=== PATIENT | male | born 1965 | race Caucasian/White ===

== ENCOUNTER 2022-06-10 06:47 | Emergency (ER) | payer OTHER, MEDICARE ==
[2022-06-10] MEDS ORDERED: Ketorolac 30 MG/ML SDV IM ONE (07:20)
[2022-06-10] MEDS ORDERED: LORazepam 2 MG/ML SDV IM ONE (07:20)
[2022-06-10] MEDS ORDERED: fentaNYL 100 MCG/2 ML SDV IM ONE (09:36)
== END 2022-06-10 10:06 | disposition home or self-care (01) ==
LOC: JP.ED 06:47
DX: S16.1XXA Strain of muscle, fascia and tendon at neck level, initial encounter (principal); E78.00 Pure hypercholesterolemia, unspecified; I10 Essential (primary) hypertension; E11.9 Type 2 diabetes mellitus without complications; F17.210 Nicotine dependence, cigarettes, uncomplicated; Z88.5 Allergy status to narcotic agent; Z79.899 Other long term (current) drug therapy; V49.40XA Driver injured in collision with unspecified motor vehicles in traffic accident, initial encounter; Y92.410 Unspecified street and highway as the place of occurrence of the external cause
CPT/HCPCS: 72125; 76377; 96372; 99283; J1885; J2060; J3010

== ENCOUNTER 2022-09-17 04:58 | Emergency (ER) | payer MEDICARE, OTHER ==
[2022-09-17] MEDS ORDERED: HYDROmorphone 0.5 MG/0.5 ML Syringe IVPUSH ONE ×2 (05:35→08:44)
[2022-09-17] MEDS ORDERED: Ondansetron 4 MG/2 ML SDV IVPUSH ONE (05:35)
[2022-09-17] MEDS ORDERED: Sodium Chloride 0.9% 1,000 ML IV SCH (05:45)
[2022-09-17 06:26] LABS: ESTIMATED GFR 79 mL/min (>60)
[2022-09-17] MEDS ORDERED: Sodium Chloride 0.9% 10 ML Syringe FLUSH ONE (07:06)
[2022-09-17] MEDS ORDERED: Iopamidol 612 MG/ML 100 ML Bottle IV SCH (07:15)
[2022-09-17] MEDS ORDERED: Sodium Chloride 0.9% 50 ML IV SCH (07:15)
== END 2022-09-17 12:11 | disposition home or self-care (01) ==
LOC: JP.ED 04:58
DX: T18.4XXA Foreign body in colon, initial encounter (principal); R10.11 Right upper quadrant pain; E78.00 Pure hypercholesterolemia, unspecified; E03.9 Hypothyroidism, unspecified; E11.9 Type 2 diabetes mellitus without complications; F17.210 Nicotine dependence, cigarettes, uncomplicated; Z88.6 Allergy status to analgesic agent; Z79.899 Other long term (current) drug therapy; Z79.84 Long term (current) use of oral hypoglycemic drugs; Z86.16 Personal history of COVID-19
CPT/HCPCS: 36415; 74177; 80053; 81001; 83690; 85025; 96361; 96374; 96375; 96376; 99284; J1170; J2405; J3490; J7030; Q9967

== ENCOUNTER 2022-09-18 22:57 | Emergency (ER) | payer MEDICARE, OTHER ==
[2022-09-18] MEDS ORDERED: Sodium Chloride 0.9% 10 ML Syringe FLUSH PRN (23:23)
[2022-09-18] MEDS ORDERED: Sodium Chloride 0.9% 1,000 ML IV STA (23:23)
[2022-09-18] MEDS ORDERED: Ondansetron 4 MG/2 ML SDV IVPUSH ONE (23:24)
[2022-09-18] MEDS ORDERED: HYDROmorphone 1 MG/ML Syringe IVPUSH ONE (23:24)
[2022-09-19 00:12] LABS: ESTIMATED GFR 88 mL/min (>60); TROPONIN I HIGH SENSITIVITY 5.2 pg/mL (<=60.3)
[2022-09-19] MEDS ORDERED: Alum Hydrox/Mag Hydrox/Simeth 15 ML, Lidocaine 2% 15 ML PO ONE ×2 (00:14)
[2022-09-19] MEDS ORDERED: Lidocaine 2% Viscous Solution 15 ML UD ONE (00:19)
== END 2022-09-19 03:35 ==
LOC: JP.ED 22:57
DX: R10.11 Right upper quadrant pain (principal); E78.00 Pure hypercholesterolemia, unspecified; K21.9 Gastro-esophageal reflux disease without esophagitis; E11.9 Type 2 diabetes mellitus without complications; E03.9 Hypothyroidism, unspecified; F17.210 Nicotine dependence, cigarettes, uncomplicated; Z86.16 Personal history of COVID-19; Z88.5 Allergy status to narcotic agent; Z79.899 Other long term (current) drug therapy
CPT/HCPCS: 36415; 80053; 83605; 83690; 84484; 85025; 87635; 96361; 96374; 96375; 99284; A9270; J1170; J2405; J3490; J7030; U0002

== ENCOUNTER 2022-09-25 12:31 | Inpatient (IN) | payer OTHER ==
[2022-09-25] MEDS ORDERED: Ondansetron 4 MG/2 ML SDV IVPUSH ONE (13:08)
[2022-09-25] MEDS ORDERED: Sodium Chloride 0.9% 1,000 ML IV SCH (13:15)
[2022-09-25 14:51] LABS: ESTIMATED GFR 71 mL/min (>60)
[2022-09-25] MEDS ORDERED: 50% Dextrose in Water 50 ML Syringe IV PRN (16:19)
[2022-09-25] MEDS ORDERED: Acetaminophen 325 MG Tab PO PRN (16:19)
[2022-09-25] MEDS ORDERED: Sodium Chloride 0.9% 10 ML Syringe FLUSH PRN (16:19)
[2022-09-25] MEDS ORDERED: Glucose Gel 15 GM in 37.5 GM Tube PO PRN (16:19)
[2022-09-25] MEDS ORDERED: LORazepam 2 MG/ML SDV IV PRN (16:19)
[2022-09-25] MEDS: HYDROmorphone 0.5 MG/0.5 ML Syringe IVPUSH PRN ×3 (17:13→22:42)
[2022-09-25] MEDS: Insulin Lispro 100 Unit/ML 3 ML KwikPen SUBCUT SCH ×2 (17:16→21:21)
[2022-09-25] MEDS: Enoxaparin 40 MG/0.4 ML Syringe SUBCUT SCH (17:16)
[2022-09-25] MEDS: Ondansetron 4 MG/2 ML SDV IV PRN (19:19)
[2022-09-25] MEDS ORDERED: Propranolol 40 MG Tab PO SCH (21:00)
[2022-09-25] MEDS ORDERED: rOPINIRole 1 MG Tab PO SCH (21:00)
[2022-09-25] MEDS: Cyclobenzaprine 10 MG Tab PO PRN (21:27)
[2022-09-25] MEDS: Topiramate 25 MG Tab PO SCH (21:27)
[2022-09-26] MEDS: Sodium Chloride 0.9% 1,000 ML IV SCH ×2 (01:10→09:12)
[2022-09-26] MEDS: HYDROmorphone 0.5 MG/0.5 ML Syringe IVPUSH PRN ×3 (01:25→08:23)
[2022-09-26] MEDS: Ondansetron 4 MG/2 ML SDV IV PRN ×2 (01:25→15:33)
[2022-09-26] MEDS ORDERED: Levothyroxine 25 MCG, Levothyroxine 50 MCG PO SCH ×2 (07:30)
[2022-09-26] MEDS: Insulin Lispro 100 Unit/ML 3 ML KwikPen SUBCUT SCH ×3 (08:17→17:03)
[2022-09-26] MEDS: Topiramate 25 MG Tab PO SCH (08:18)
[2022-09-26] MEDS ORDERED: Non-Formulary Medication 1 Each (Levothyroxine [Levothyroxine] 75 MCG Tablet) PO SCH (09:00)
[2022-09-26] MEDS ORDERED: atorvaSTATin 10 MG Tab PO SCH (09:00)
[2022-09-26] MEDS ORDERED: Magnesium Oxide 400 MG Tab PO SCH (09:00)
[2022-09-26] MEDS ORDERED: DULoxetine 30 MG Cap PO SCH (09:00)
[2022-09-26] MEDS ORDERED: Non-Formulary Medication 1 Each (Duloxetine [Cymbalta] 60 MG Cap) PO SCH (09:00)
[2022-09-26] MEDS: Magnesium Sulfate/Water 2 GM in Premix Bag 1 BAG IV SCH ×2 (09:13→15:39)
[2022-09-26] MEDS: Pantoprazole 40 MG Tab.CR PO SCH ×2 (10:42→16:42)
[2022-09-26] MEDS: Cyclobenzaprine 10 MG Tab PO PRN (15:37)
[2022-09-26] MEDS: Enoxaparin 40 MG/0.4 ML Syringe SUBCUT SCH (17:03)
== END 2022-09-26 18:55 | disposition left against medical advice (07) | DRG 392 ==
LOC: JP.ED 12:31 → JP.MS 16:07
PROVIDERS: ADMIT Hospitalist; ATTEND Hospitalist
DX: K52.9 Noninfective gastroenteritis and colitis, unspecified (principal); E11.9 Type 2 diabetes mellitus without complications; K81.9 Cholecystitis, unspecified; E86.0 Dehydration; E03.9 Hypothyroidism, unspecified; E78.5 Hyperlipidemia, unspecified; G43.909 Migraine, unspecified, not intractable, without status migrainosus; K21.9 Gastro-esophageal reflux disease without esophagitis; F17.210 Nicotine dependence, cigarettes, uncomplicated; Z88.5 Allergy status to narcotic agent; Z79.84 Long term (current) use of oral hypoglycemic drugs; Z79.899 Other long term (current) drug therapy; Z90.49 Acquired absence of other specified parts of digestive tract
CPT/HCPCS: 36415; 71045; 71045-26; 74021; 74021-26; 74176; 74176-26; 80048; 80053; 82947; 83690; 83735; 85025; 96361; 96374; 99222; 99238; 99285; 99285-25; A9270-GY; J1170; J1650; J1815; J2060; J2405; J3475; J7030; U0002

== ENCOUNTER 2022-11-10 23:10 | Emergency (ER) | payer OTHER | END 2022-11-11 00:43 | disposition left against medical advice (07) | LOC: JP.ED 23:10 | DX: Z53.21 Procedure and treatment not carried out due to patient leaving prior to being seen by health care provider (principal) ==